=== PATIENT | male | born 1980 | race Caucasian/White ===

== ENCOUNTER 2023-02-11 20:37 | Emergency (ER) | payer MEDICAID, SELFPAY ==
--- NOTE | ~2023-02-11 | CT_ITS ---
Noncontrast CT scan of the lumbar spine CLINICAL HISTORY: Pain TECHNIQUE: Axial noncontrast imaging of the lumbar spine was performed. Sagittal and coronal reformat bell images were constructed. Dose reduction technique was used on this scan by utilizing automated ex posure control and iterative reconstruction technique. The dose-length product (DLP) was 162.81 mGy-c m. FINDINGS: No acute fracture or subluxation identified in the lumbar spine. Vertebral bodies maintain normal height and alignment. Intervertebral disc spaces are well preserved. There are flowing syndesmophytes the lumbar spine. There is probable fusion across nearly all the fac et joints bilaterally. 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 No significant disc bulge or herniation identified. No spinal canal stenosis evident. There is probab le multilevel mild neural foraminal narrowing bilaterally. Paravertebral soft tissues are unremarkable. Impression: Ankylosing spondylitis, as detailed above. No fracture or subluxation. Probable mild multilevel bilateral neural foraminal narrowing. Reviewed, dictated and finalized at [facility]. Impression: Ankylosing spondylitis, as detailed above. No fracture or subluxation. Probable mild multilevel bilateral neural foraminal narrowing.
[2023-02-11 21:27] VITALS: BP 113/85; PULSE 81; RESP 18; TEMP 36.1; O2SAT 100
[2023-02-12 01:10] VITALS: BP 127/62; PULSE 76; RESP 16; O2SAT 100
[2023-02-12] MEDS: CYCLOBENZAPRINE HCL 10 MG TABLET (01:50)
[2023-02-12] MEDS: KETOROLAC 30 MG/ML VIAL (*BKC) (01:51)
--- NOTE | 2023-02-12 02:50 | ED.GENADULT ---
HPI - General Adult General Chief complaint: Back Pain/Injury Stated complaint: lower back pain Time Seen by Provider: 02/12/23 02:48 History of Present Illness HPI narrative: Patient 42-year-old gentleman who presents the emergency department with chief complaint of back pain. Patient reports that he has prior history of back pain after a fall patient states he was seen in [facility] and was given pain medications. The patient states his pain was doing better and reports that over the last couple days he had worsening pain in his low back. Patient states he has had no new injuries denies fever denies bowel or bladder dysfunction denies numbness or tingling Related Data Allergies Allergy/AdvReac Type Severity Reaction Status Date / Time No Known Allergies Allergy Verified 02/12/23 03:27 Review of Systems Review of Systems: A 10 system review of systems was completed on the patient and is negative except for what is stated in the HPI. Nursing and ancillary documentation was reviewed. Exam Narrative: GENERAL: Well-appearing, well-nourished, and in no acute distress. HEAD: Normocephalic, atraumatic. EYES: PERRLA and EOMI. ENT: Nares clear, no rhinorrhea or epistaxis. Mucous membranes moist. NECK: Supple. CHEST: Clear to auscultation. No respiratory distress. HEART: Regular rate and rhythm. No murmur heard. Normal peripheral pulses. ABDOMEN: Soft, nontender, nondistended, normal active bowel sounds. EXTREMITIES: Normal range of motion. No edema. Back: Tenderness to palpation in the lumbar spine no bony step-off noted SKIN: Warm, dry, no rash. NEURO: No focal deficits. Alert and oriented x3. PSYCH: Normal mood and affect. Course Vital Signs Vital signs: Vital Signs Temperature 36.1 C L 02/11/23 21:27 Pulse Rate 81 02/11/23 21:27 Respiratory Rate 18 02/11/23 21:27 Blood Pressure 113/85 02/11/23 21:27 Pulse Oximetry 100 02/11/23 21:27 Oxygen Delivery Room Air 02/11/23 21:27 Temperature 36.1 C L 02/11/23 21:27 Pulse Rate 81 02/11/23 21:27 Respiratory Rate 18 02/11/23 21:27 Blood Pressure 113/85 02/11/23 21:27 Pulse Oximetry 100 02/11/23 21:27 Oxygen Delivery Room Air 02/11/23 21:27 Medical Decision Making MDM Narrative Medical decision making narrative: Differential diagnosis includes fracture, chronic back pain CT scan of the lumbar spine was obtained which showed evidence of ankylosing spondylolysis and no evidence of fracture or subluxation Patient was given Toradol Decadron and a muscle relaxer the patient be discharged home on diclofenac and prednisone and Flexeril Vital Signs Vital Signs: Vital Signs Temperature 36.1 C L 02/11/23 21:27 Pulse Rate 81 02/11/23 21:27 Respiratory Rate 18 02/11/23 21:27 Blood Pressure 113/85 02/11/23 21:27 Pulse Oximetry 100 02/11/23 21:27 Oxygen Delivery Room Air 02/11/23 21:27 Temperature 36.1 C L 02/11/23 21:27 Pulse Rate 81 02/11/23 21:27 Respiratory Rate 18 02/11/23 21:27 Blood Pressure 113/85 02/11/23 21:27 Pulse Oximetry 100 02/11/23 21:27 Oxygen Delivery Room Air 02/11/23 21:27 Discharge Plan Discharge Clinical Impression: Low back pain Patient Disposition: Home, Self-Care Condition: Stable Instructions: Antibiotic Form, Acute Low Back Pain (ED) Prescriptions: New diclofenac potassium 50 mg tablet 50 mg PO TID PRN (Reason: pain) Qty: 30 0RF cyclobenzaprine 10 mg tablet 10 mg PO TID PRN (Reason: muscle spasm) Qty: 21 0RF prednisone 20 mg tablet 40 mg PO DAILY 5 Days Qty: 10 0RF Follow-up/Referrals: Alvarez Perez MD [Physician] - UNKNOWN,DOCTOR [Primary Care Provider] - Time of Disposition: 03:32
== END 2023-02-12 06:38 | disposition home or self-care (01) ==
PROVIDERS: Emergency Provider Emergency Medicine
DX: M54.50 Low back pain, unspecified (principal); M45.8 Ankylosing spondylitis sacral and sacrococcygeal region
CPT/HCPCS: 72131; 96374; 96375; 99284; A9270; J1100; J1885